=== PATIENT | male | born 1975 | race African-American/Black ===

== ENCOUNTER 2021-06-06 16:22 | Inpatient (IN) | payer BC, SELFPAY ==
[2021-06-06 17:57] LABS: Hemoglobin 12.7 g/dL (14.0-18.0); Mean Corpuscular HGB CONC 33.9 g/dL (32.0-36.0); Mean Corpuscular Hemoglobin 30.3 pg (27.0-31.0); Mean Corpuscular Volume 89.5 fL (78.0-98.0); RBC Distribution Width 17.3 % (11.5-14.5); Red Blood Cell (RBC) Count 4.17 mill/uL (4.70-6.10); White Blood Cell (WBC) Count 10.1 thou/uL (4.8-10.8)
[2021-06-06 18:12] LABS: ALT (SGPT) 70 U/L (8-55); AST (SGOT) 58 U/L (5-34); Albumin 4.3 g/dL (3.5-5.0); Alkaline Phosphatase 72 U/L (40-110); BUN (Urea Nitrogen) 46 mg/dL (8.9-20.6); Calc. Creatinine Clearance 0 mL/min (70-130); Calcium 9.8 mg/dL (7.8-10.44); Globulin 3.7 g/dL (2.4-3.5); Glucose 201 mg/dL (70-105); Sodium 132 mmol/L (136-145)
[2021-06-06 18:18] LABS: Band 5 % (5-11); Lymphocytes 15 % (21-51); MDiff Complete? YES; Mean Platelet Volume 10.1 fL (7.4-10.4); Monocytes 10 % (0-10); Neutrophil 70 % (42-75); Platelet Count 181 thou/uL (130-400); Platelet Morphology Comment Appears Adequate; Polychromasia SLIGHT = 2-3 cells (100X) (0-2/hpf); Target Cells MODERATE= 6-15 cells (100X) (0-1/hpf)
[2021-06-06 18:47] LABS: Carbon Dioxide 48 mmol/L (22-29)
[2021-06-06 18:48] LABS: Chloride Less than 65 mmol/L (98-107); Potassium 2.4 mmol/L (3.5-5.1)
[2021-06-06 18:56] LABS: CK (CPK) 185 U/L (30-200); Lipase 10 U/L (8-78)
[2021-06-06] MEDS ORDERED: Ondansetron PF 4 MG/2 ML Vial ONE (20:25)
[2021-06-06] MEDS ORDERED: Lorazepam 2 MG/ML VIAL ONE ×2 (20:25→21:07)
[2021-06-06] MEDS ORDERED: Pantoprazole 40 MG VIAL ONE (20:25)
[2021-06-06] MEDS ORDERED: Potassium Chloride 20 MEQ TAB ONE (20:25)
[2021-06-06] MEDS ORDERED: Multivitamins, Adult 10 ML, Thiamine HCl 100 MG, Folic Acid 1 MG in Dextrose 5 %-0.45 %... IV SCH (21:00)
[2021-06-06 21:47] LABS: Bacteria/HPF None Seen HPF (None Seen); Bilirubin Negative (Negative); Blood, Urine Negative (Negative); Clarity Clear (Clear); Glucose, Urine (Dipstick) 30 mg/dL (Negative); Ketone, Urine Trace mg/dL (Negative); Leukocyte Negative Leu/uL (Negative); Nitrite Negative (Negative); Protein, Urine (Dipstick) 30 mg/dL (Neg-Trace); RBC/HPF 0-3 HPF (0-3); Specific Gravity, Urine 1.018 (1.002-1.036); Squamous Epithelial 0-3 HPF (0-3); Urobilinogen Normal mg/dL (Less than 2); WBC/HPF 0-3 HPF (0-3); pH, Urine 6.5 (5.0-9.0)
[2021-06-06] MEDS ORDERED: Octreotide Acetate 1,250 MCG in Sodium Chloride 0.9% 250 ML 250 ML IVPB SCH (22:15)
[2021-06-06 22:30] LABS: #Lymphocytes 1.2 thou/uL (1.20-3.40); #Monocytes 1.5 thou/uL (0.11-0.59); #Neutrophils 9.1 thou/uL (1.40-6.50); %Basophils 0.2 % (0.0-1.0); %Eosinophils 0.1 % (0.0-10.0); %Lymphocytes 10.4 % (21.0-51.0); %Monocytes 12.9 % (0.0-10.0); %Neutrophils 76.4 % (42.0-75.0); Hemoglobin 9.9 g/dL (14.0-18.0); Mean Corpuscular HGB CONC 34.2 g/dL (32.0-36.0); Mean Corpuscular Hemoglobin 30.8 pg (27.0-31.0); Mean Platelet Volume 9.7 fL (7.4-10.4); Platelet Count 146 thou/uL (130-400); RBC Distribution Width 17.1 % (11.5-14.5); White Blood Cell (WBC) Count 11.9 thou/uL (4.8-10.8)
[2021-06-06] MEDS ORDERED: Octreotide Acetate 50 MCG/ML AMP SLOW IVP SCH (22:30)
[2021-06-06 22:44] LABS: Lactic Acid 3.7 mmol/L (0.5-2.2)
[2021-06-06] MEDS ORDERED: Acetaminophen 650 MG Suppository PR PRN (22:47)
[2021-06-06] MEDS ORDERED: Ondansetron ODT 4 MG TAB PO PRN (22:47)
[2021-06-06] MEDS ORDERED: Ondansetron PF 4 MG/2 ML Vial IVP PRN (22:47)
[2021-06-06 22:57] LABS: Anion Gap 23 mmol/L (10-20); Carbon Dioxide 40 mmol/L (22-29); Sodium 129 mmol/L (136-145)
[2021-06-06] MEDS ORDERED: cefTRIAXone\\ROCEPHIN 1 GM in Sodium Chloride 0.9% 100 ML IVPB SCH (23:00)
[2021-06-06] MEDS ORDERED: Sodium Chloride 0.9% 1,000 ML IV SCH (23:00)
[2021-06-06 23:05] LABS: BUN (Urea Nitrogen) 55 mg/dL (8.9-20.6); Calc. Creatinine Clearance 0 mL/min (70-130); Calcium 8.1 mg/dL (7.8-10.44); Chloride 68 mmol/L (98-107); Glucose 150 mg/dL (70-105); Potassium 2.4 mmol/L (3.5-5.1)
[2021-06-06 23:37] LABS: Magnesium 2.2 mg/dL (1.6-2.6)
[2021-06-06] MEDS ORDERED: Sodium Chloride 0.9% 500 ML IV SCH (23:45)
[2021-06-07 00:39] LABS: Amphetamine Not Detected (NotDetected); Barbiturates Screen Not Detected (NotDetected); Benzodiazepine Screen Not Detected (NotDetected); Cocaine Metabolite Screen Not Detected (NotDetected); Methadone Not Detected (NotDetected); Methamphetamine Not Detected (NotDetected); Opiate Screen Not Detected (NotDetected); Oxycodone Screen Not Detected (NotDetected); Phencyclidine (PCP) Not Detected (NotDetected); THC/Cannabinoid Screen Detected (NotDetected); Tricyclic Screen Not Detected (NotDetected)
[2021-06-07 00:42] VITALS: BMI 20.2
[2021-06-07] MEDS: Potassium Chloride 20 MEQ in Premix Bag 1 BAG IVPB SCH ×7 (01:13→18:31)
[2021-06-07 02:12] LABS: Hemoglobin 9.2 g/dL (14.0-18.0)
[2021-06-07] MEDS: Pantoprazole 80 MG in Sodium Chloride 0.9% 100 ML IVPB SCH (02:14)
[2021-06-07] MEDS ORDERED: Electrolyte Replacement Protocol 1 EACH FS SCH (02:30)
[2021-06-07 04:21] LABS: Hemoglobin 8.8 g/dL (14.0-18.0); Mean Corpuscular Hemoglobin 29.4 pg (27.0-31.0); Mean Corpuscular Volume 89.3 fL (78.0-98.0); Mean Platelet Volume 9.5 fL (7.4-10.4); Platelet Count 154 thou/uL (130-400); Red Blood Cell (RBC) Count 2.98 mill/uL (4.70-6.10); White Blood Cell (WBC) Count 11.2 thou/uL (4.8-10.8)
[2021-06-07 04:30] LABS: BUN (Urea Nitrogen) 54 mg/dL (8.9-20.6); Calc. Creatinine Clearance 38 mL/min (70-130); Glucose 154 mg/dL (70-105)
[2021-06-07 04:35] LABS: ALT (SGPT) 44 U/L (8-55); AST (SGOT) 38 U/L (5-34); Albumin 3.2 g/dL (3.5-5.0); Alkaline Phosphatase 49 U/L (40-110); Bilirubin, Direct 0.3 mg/dL (0.1-0.3); Bilirubin, Total 0.7 mg/dL (0.2-1.2); Protein, Total 5.9 g/dL (6.0-8.3)
[2021-06-07 04:39] LABS: Anion Gap 22 mmol/L (10-20); Carbon Dioxide 38 mmol/L (22-29); Sodium 130 mmol/L (136-145)
[2021-06-07 04:45] LABS: Chloride 73 mmol/L (98-107); Potassium 2.9 mmol/L (3.5-5.1)
[2021-06-07 06:26] LABS: Band 7 % (5-11); Lymphocytes 24 % (21-51); MDiff Complete? YES; Monocytes 14 % (0-10); Neutrophil 55 % (42-75)
[2021-06-07] MEDS ORDERED: Potassium Chloride 40 MEQ in Sodium Chloride 0.9% 250 ML 250 ML IVPB SCH (06:45)
[2021-06-07 07:00] LABS: SARS-CoV-2 NAA Rapid Test Not Detected (NotDetected)
[2021-06-07 08:45] LABS: Hemoglobin 8.5 g/dL (14.0-18.0)
[2021-06-07] MEDS ORDERED: PROPOFOL 200 MG/20 ML VIAL ONE (11:54)
[2021-06-07 13:26] LABS: Hemoglobin 8.7 g/dL (14.0-18.0)
[2021-06-07 13:47] LABS: BUN (Urea Nitrogen) 45 mg/dL (8.9-20.6); Calc. Creatinine Clearance 40 mL/min (70-130); Calcium 8.5 mg/dL (7.8-10.44); Glucose 131 mg/dL (70-105)
[2021-06-07 14:05] LABS: Sodium 131 mmol/L (136-145)
[2021-06-07 14:48] LABS: Anion Gap 15 mmol/L (10-20)
[2021-06-07 14:55] LABS: Carbon Dioxide 41 mmol/L (22-29)
[2021-06-07 14:56] LABS: Potassium 2.8 mmol/L (3.5-5.1)
[2021-06-07 14:59] LABS: Chloride 80 mmol/L (98-107)
[2021-06-07] MEDS: Sodium Chloride 0.9% 1,000 ML IV SCH ×4 (15:34→23:56)
[2021-06-07 16:02] LABS: Hemoglobin 8.2 g/dL (14.0-18.0)
[2021-06-07 21:32] LABS: #Basophils 0.1 thou/uL (0.0-0.2); #Eosinphils 0.1 thou/uL (0.0-0.7); #Lymphocytes 1.8 thou/uL (1.20-3.40); #Monocytes 1.6 thou/uL (0.11-0.59); #Neutrophils 7.1 thou/uL (1.40-6.50); %Basophils 0.9 % (0.0-1.0); %Eosinophils 0.7 % (0.0-10.0); %Lymphocytes 17.3 % (21.0-51.0); %Monocytes 14.6 % (0.0-10.0); %Neutrophils 66.4 % (42.0-75.0); Hemoglobin 7.9 g/dL (14.0-18.0); Mean Corpuscular HGB CONC 33.8 g/dL (32.0-36.0); Mean Corpuscular Hemoglobin 30.9 pg (27.0-31.0); Mean Corpuscular Volume 91.3 fL (78.0-98.0); Mean Platelet Volume 9.4 fL (7.4-10.4); Platelet Count 151 thou/uL (130-400); RBC Distribution Width 16.6 % (11.5-14.5); Red Blood Cell (RBC) Count 2.55 mill/uL (4.70-6.10); White Blood Cell (WBC) Count 10.6 thou/uL (4.8-10.8)
[2021-06-07 21:54] LABS: Anion Gap 11 mmol/L (10-20); BUN (Urea Nitrogen) 31 mg/dL (8.9-20.6); Calc. Creatinine Clearance 49 mL/min (70-130); Calcium 7.9 mg/dL (7.8-10.44); Carbon Dioxide 36 mmol/L (22-29); Chloride 90 mmol/L (98-107); Glucose 103 mg/dL (70-105); Potassium 3.4 mmol/L (3.5-5.1); Sodium 134 mmol/L (136-145)
[2021-06-08] MEDS: Pantoprazole 80 MG in Sodium Chloride 0.9% 100 ML IVPB SCH ×2 (03:01→22:43)
[2021-06-08 03:48] LABS: #Basophils 0.1 thou/uL (0.0-0.2); #Eosinphils 0.2 thou/uL (0.0-0.7); #Lymphocytes 2.4 thou/uL (1.20-3.40); #Monocytes 1.4 thou/uL (0.11-0.59); #Neutrophils 5.7 thou/uL (1.40-6.50); %Eosinophils 1.6 % (0.0-10.0); %Lymphocytes 24.3 % (21.0-51.0); %Monocytes 14.3 % (0.0-10.0); %Neutrophils 58.7 % (42.0-75.0); Hemoglobin 7.2 g/dL (14.0-18.0); Mean Corpuscular HGB CONC 34.8 g/dL (32.0-36.0); Mean Corpuscular Hemoglobin 31.8 pg (27.0-31.0); Mean Corpuscular Volume 91.4 fL (78.0-98.0); Platelet Count 156 thou/uL (130-400); RBC Distribution Width 16.6 % (11.5-14.5); Red Blood Cell (RBC) Count 2.27 mill/uL (4.70-6.10); White Blood Cell (WBC) Count 9.7 thou/uL (4.8-10.8)
[2021-06-08] MEDS: Sodium Chloride 0.9% 1,000 ML IV SCH ×5 (04:03→22:43)
[2021-06-08 04:10] LABS: Phosphorus 2.6 mg/dL (2.3-4.7)
[2021-06-08 04:14] LABS: Anion Gap 5 mmol/L (10-20); BUN (Urea Nitrogen) 29 mg/dL (8.9-20.6); Calc. Creatinine Clearance 53 mL/min (70-130); Calcium 7.8 mg/dL (7.8-10.44); Carbon Dioxide 37 mmol/L (22-29); Chloride 94 mmol/L (98-107); Glucose 109 mg/dL (70-105); Magnesium 2.4 mg/dL (1.6-2.6); Sodium 133 mmol/L (136-145)
[2021-06-08] MEDS ORDERED: Potassium Bicarbonate/Cit Ac 20 MEQ TAB PO SCH (06:45)
[2021-06-08] MEDS: Acetaminophen 325 MG TAB PO PRN ×2 (07:31→19:30)
[2021-06-08] MEDS ORDERED: Potassium Phosphate 30 MMOL in Sodium Chloride 0.9% 250 ML 250 ML IVPB SCH (08:30)
[2021-06-08 12:38] LABS: Hemoglobin 7.3 g/dL (14.0-18.0); Platelet Count 173 thou/uL (130-400)
[2021-06-08 13:04] LABS: Iron 20 ug/dL (65-175); Iron Binding Capacity, Total 329 mcg/dL (261-462)
[2021-06-08] MEDS ORDERED: Iron Sucrose Complex 400 MG in Sodium Chloride 0.9% 200 ML IVPB SCH (13:15)
[2021-06-08] MEDS: Iron, Sodium Ferric Gluconate 250 MG in Sodium Chloride 0.9% 250 ML 250 ML IVPB SCH (16:18)
[2021-06-09] MEDS: Iron, Sodium Ferric Gluconate 250 MG in Sodium Chloride 0.9% 250 ML 250 ML IVPB SCH (02:43)
[2021-06-09 04:22] LABS: #Eosinphils 0.3 thou/uL (0.0-0.7); #Lymphocytes 2.6 thou/uL (1.20-3.40); #Monocytes 1.1 thou/uL (0.11-0.59); #Neutrophils 5.3 thou/uL (1.40-6.50); %Basophils 0.5 % (0.0-1.0); %Eosinophils 2.8 % (0.0-10.0); %Lymphocytes 28.5 % (21.0-51.0); %Monocytes 11.4 % (0.0-10.0); %Neutrophils 56.8 % (42.0-75.0); Hemoglobin 7.2 g/dL (14.0-18.0); Mean Corpuscular HGB CONC 33.1 g/dL (32.0-36.0); Mean Corpuscular Hemoglobin 30.6 pg (27.0-31.0); Mean Corpuscular Volume 92.6 fL (78.0-98.0); Mean Platelet Volume 8.7 fL (7.4-10.4); Platelet Count 184 thou/uL (130-400); RBC Distribution Width 16.2 % (11.5-14.5); Red Blood Cell (RBC) Count 2.36 mill/uL (4.70-6.10); White Blood Cell (WBC) Count 9.3 thou/uL (4.8-10.8)
[2021-06-09 04:38] LABS: Anion Gap 9 mmol/L (10-20); BUN (Urea Nitrogen) 15 mg/dL (8.9-20.6); Calc. Creatinine Clearance 68 mL/min (70-130); Calcium 7.8 mg/dL (7.8-10.44); Carbon Dioxide 28 mmol/L (22-29); Chloride 103 mmol/L (98-107); Glucose 92 mg/dL (70-105); Sodium 137 mmol/L (136-145)
[2021-06-09] MEDS ORDERED: Potassium Bicarbonate/Cit Ac 20 MEQ TAB PO SCH (07:00)
[2021-06-09] MEDS: Potassium Chloride 20 MEQ TAB PO SCH ×3 (09:26→14:55)
[2021-06-09 14:54] VITALS: BP 151/95; TEMP 98.9
== END 2021-06-09 15:55 | disposition home or self-care (01) | DRG 377 ==
LOC: ERS 16:22 → 2NO 22:05
PROVIDERS: ADMIT Student in an Organized Health Care Education/Training Program; ATTEND Internal Medicine
PROC: 0W3P8ZZ Control Bleeding in Gastrointestinal Tract, Via Natural or Artificial Opening Endoscopic (ICD-10-PCS; principal; 2021-06-07)
DX: K26.4 Chronic or unspecified duodenal ulcer with hemorrhage (principal); R57.8 Other shock; E87.3 Alkalosis; N17.9 Acute kidney failure, unspecified; F10.239 Alcohol dependence with withdrawal, unspecified; E87.2 Acidosis; D62 Acute posthemorrhagic anemia; E87.1 Hypo-osmolality and hyponatremia; G93.49 Other encephalopathy; Z20.822 Contact with and (suspected) exposure to COVID-19; E78.5 Hyperlipidemia, unspecified; I10 Essential (primary) hypertension; K76.0 Fatty (change of) liver, not elsewhere classified; F17.210 Nicotine dependence, cigarettes, uncomplicated; E87.6 Hypokalemia; E87.8 Other disorders of electrolyte and fluid balance, not elsewhere classified; R74.01 Elevation of levels of liver transaminase levels; E86.0 Dehydration; K21.00 Gastro-esophageal reflux disease with esophagitis, without bleeding; E86.9 Volume depletion, unspecified; Z88.8 Allergy status to other drugs, medicaments and biological substances
CPT/HCPCS: 36415; 71045; 76705; 80048; 80053; 80076; 80306; 80307; 81003; 81015; 82040; 82140; 82550; 82728; 83540; 83550; 83605; 83690; 83735; 84100; 85025; 86850; 86900; 86901; 93005; 96365; 96366; 96375; 96376; C9113; J0696; J2060; J2354; J2405; J2704; J2916; J3411; J3480; J3490; J7042; J7050; U0002

== ENCOUNTER 2023-01-14 16:37 | Inpatient (IN) | payer OTHER, SELFPAY ==
[2023-01-14] MEDS ORDERED: NIFEdipine 10 MG CAP PO SCH (17:30)
[2023-01-14] MEDS ORDERED: Acetaminophen 325 MG TAB PO PRN (18:16)
[2023-01-14] MEDS ORDERED: Ondansetron PF 4 MG/2 ML Vial IVP PRN (18:16)
[2023-01-14] MEDS ORDERED: Labetalol HCl 100 MG/20 ML VIAL SLOW IVP PRN (18:16)
[2023-01-14] MEDS ORDERED: Ondansetron ODT 4 MG TAB PO PRN (18:16)
[2023-01-14] MEDS ORDERED: HYDROcodone/Acetaminophen 5/325 mg Tablet PO PRN (18:16)
[2023-01-14] MEDS ORDERED: hydrALAZINE 20 MG/ML VIAL SLOW IVP PRN (18:16)
[2023-01-14] MEDS ORDERED: niCARdipine 25 MG in Sodium Chloride 0.9% 250 ML 250 ML IVPB SCH (18:30)
[2023-01-14] MEDS ORDERED: niCARdipine 25 MG/10 ML SDV ONE (18:45)
[2023-01-14] MEDS ORDERED: Lorazepam 2 MG/ML VIAL IM PRN (19:49)
[2023-01-14] MEDS ORDERED: Lorazepam 1 MG TAB PO PRN (19:49)
[2023-01-14] MEDS ORDERED: Nicotine 14 MG PATCH TD SCH (20:00)
[2023-01-14] MEDS ORDERED: Thiamine HCl 200 MG/2 ML VIAL SLOW IVP SCH (20:00)
[2023-01-14] MEDS ORDERED: Electrolyte Replacement Protocol 1 EACH FS SCH (20:00)
[2023-01-14 20:58] VITALS: BMI 20.9
[2023-01-14] MEDS: Lorazepam 1 MG TAB PO SCH (21:16)
[2023-01-15] MEDS: Lorazepam 1 MG TAB PO SCH ×2 (02:39→09:09)
[2023-01-15 04:08] LABS: #Lymphocytes 1.4 thou/uL (1.20-3.40); #Monocytes 0.6 thou/uL (0.11-0.59); #Neutrophils 2.6 thou/uL (1.40-6.50); %Basophils 0.8 % (0.0-1.0); %Eosinophils 0.1 % (0.0-10.0); %Lymphocytes 30.3 % (21.0-51.0); %Monocytes 12.5 % (0.0-10.0); %Neutrophils 56.3 % (42.0-75.0); Hemoglobin 12.6 g/dL (14.0-18.0); Mean Corpuscular HGB CONC 32.8 g/dL (32.0-36.0); Mean Corpuscular Hemoglobin 29.4 pg (27.0-31.0); Mean Corpuscular Volume 89.7 fl (78.0-98.0); Mean Platelet Volume 9.7 fL (7.4-10.4); Platelet Count 242 10x3/uL (130-400); RBC Distribution Width 18.5 % (11.5-14.5); Red Blood Cell (RBC) Count 4.29 mill/uL (4.70-6.10); White Blood Cell (WBC) Count 4.6 10x3/uL (4.8-10.8)
[2023-01-15 04:26] LABS: Phosphorus 4.5 mg/dL (2.3-4.7)
[2023-01-15 04:29] LABS: Anion Gap 16 mmol/L (10-20); BUN (Urea Nitrogen) 9 mg/dL (8.9-20.6); Calc. Creatinine Clearance 108 mL/min (70-130); Calcium 9.7 mg/dL (7.8-10.44); Carbon Dioxide 24 mmol/L (22-29); Chloride 100 mmol/L (98-107); Estimated GFR 115; Glucose 91 mg/dL (70-105); Magnesium 2.1 mg/dL (1.6-2.6); Potassium 3.8 mmol/L (3.5-5.1); Sodium 136 mmol/L (136-145)
[2023-01-15] MEDS ORDERED: Multivit, Therapeutic 1 TAB PO SCH (09:00)
[2023-01-15] MEDS ORDERED: Amlodipine 5 MG TAB PO SCH (09:00)
[2023-01-15] MEDS ORDERED: Folic Acid 1 MG TAB PO SCH (09:00)
[2023-01-15 09:03] VITALS: BP 146/80
[2023-01-15 09:39] VITALS: TEMP 98.5
[2023-01-15 10:00] LABS: Amphetamine Not Detected (NotDetected); Barbiturates Screen Not Detected (NotDetected); Benzodiazepine Screen Detected (NotDetected); Cocaine Metabolite Screen Not Detected (NotDetected); Methadone Not Detected (NotDetected); Methamphetamine Not Detected (NotDetected); Opiate Screen Not Detected (NotDetected); Oxycodone Screen Not Detected (NotDetected); Phencyclidine (PCP) Not Detected (NotDetected); THC/Cannabinoid Screen Detected (NotDetected); Tricyclic Screen Not Detected (NotDetected)
[2023-01-15] MEDS ORDERED: Lorazepam 1 MG TAB PO PRN (19:49)
[2023-01-16] MEDS ORDERED: Losartan 25 MG TAB PO SCH (09:00)
[2023-01-16] MEDS ORDERED: Lorazepam 1 MG TAB PO PRN (19:49)
[2023-01-16] MEDS ORDERED: Lorazepam 0.5 MG TAB PO SCH (20:00)
[2023-01-17] MEDS ORDERED: Lorazepam 0.5 MG TAB PO PRN (19:49)
[2023-01-17] MEDS ORDERED: Thiamine 100 MG TAB PO SCH (20:00)
== END 2023-01-15 12:15 | disposition home or self-care (01) | DRG 305 ==
LOC: ERS 16:37 → CCU 17:15
PROVIDERS: ADMIT Internal Medicine; ATTEND Internal Medicine
DX: I16.1 Hypertensive emergency (principal); Z88.8 Allergy status to other drugs, medicaments and biological substances; Z98.890 Other specified postprocedural states
CPT/HCPCS: 36415; 80048; 80306; 83735; 84100; 85025; J1650; J3411

== ENCOUNTER 2023-04-15 18:19 | Observation (INO) | payer OTHER ==
[2023-04-15 18:43] LABS: Hemoglobin 7.2 g/dL (14.0-18.0); Mean Corpuscular HGB CONC 33.3 g/dL (32.0-36.0); Mean Corpuscular Hemoglobin 31.3 pg (27.0-31.0); Mean Corpuscular Volume 93.9 fl (78.0-98.0); Mean Platelet Volume 9.3 fL (7.4-10.4); Platelet Count 357 10x3/uL (130-400); RBC Distribution Width 17.4 % (11.5-14.5); White Blood Cell (WBC) Count 11.3 10x3/uL (4.8-10.8)
[2023-04-15 18:44] LABS: Delete Auto Diff?? YES; Manual Diff?? YES
[2023-04-15 19:06] LABS: ALT (SGPT) 60 U/L (8-55); AST (SGOT) 39 U/L (5-34); Albumin 3.6 g/dL (3.5-5.0); Alkaline Phosphatase 57 U/L (40-110); Anion Gap 11 mmol/L (10-20); Anisocytosis SLIGHT = 6-15 cells HPF (0-5); BUN (Urea Nitrogen) 6 mg/dL (8.9-20.6); Band 2 % (5-11); Bilirubin, Total 0.2 mg/dL (0.2-1.2); Calc. Creatinine Clearance 0 mL/min (70-130); Calcium 9.1 mg/dL (7.8-10.44); Carbon Dioxide 23 mmol/L (22-29); CellaVision Operator ID LAB.MJL; Chloride 104 mmol/L (98-107); Eosinophils 2 % (0-10); Estimated GFR 112; Globulin 2.6 g/dL (2.4-3.5); Glucose 116 mg/dL (70-105); Large Platelets 6.1 % (0-5); Lymphocytes 37 % (21-51); Monocytes 7 % (0-10); Neutrophil 47 % (42-75); Platelet Adequacy Comment Platelets Normal; Polychromasia SLIGHT = 2-3 cells HPF (0-2); Potassium 3.5 mmol/L (3.5-5.1); Protein, Total 6.2 g/dL (6.0-8.3); Sodium 134 mmol/L (136-145); Target Cells SLIGHT = 2-5 cells HPF (0-1); Total Cell Count 99
[2023-04-15 19:30] LABS: INR-International Normal Ratio 0.9; PTT 25.9 sec (22.9-36.1); Prothrombin Time 12.9 sec (12.0-14.7)
[2023-04-15] MEDS ORDERED: Pantoprazole 80 MG, Admixture Fee 1 EACH in Sodium Chloride 0.9% 100 ML IVPB SCH (20:45)
[2023-04-15] MEDS ORDERED: cefTRIAXone (ROCEPHIN) 2 GM VIAL ONE (20:51)
[2023-04-15] MEDS ORDERED: Ondansetron PF 4 MG/2 ML Vial IVP PRN (20:57)
[2023-04-15] MEDS ORDERED: Acetaminophen 500 MG TAB PO PRN (21:00)
[2023-04-15] MEDS ORDERED: LORazepam 2 MG/ML SYR.(CARPUJECT) ONE (21:15)
[2023-04-15] MEDS ORDERED: Lorazepam 2 MG/ML VIAL IM PRN (21:15)
[2023-04-15] MEDS ORDERED: Electrolyte Replacement Protocol 1 EACH FS SCH (21:15)
[2023-04-15] MEDS ORDERED: Lorazepam 1 MG TAB PO PRN (21:15)
[2023-04-15 23:44] VITALS: BMI 21.7
[2023-04-16] MEDS: Potassium Chloride 20 MEQ in Premix Bag 1 BAG IVPB SCH ×2 (00:45→02:34)
[2023-04-16] MEDS: Thiamine HCl 200 MG/2 ML VIAL SLOW IVP SCH ×2 (00:53→20:47)
[2023-04-16 02:03] LABS: Hemoglobin 7.6 g/dL (14.0-18.0)
[2023-04-16 02:04] LABS: #Basophils 0.1 thou/uL (0.0-0.2); #Eosinphils 0.2 thou/uL (0.0-0.7); #Monocytes 1.4 thou/uL (0.11-0.59); #Neutrophils 4.4 thou/uL (1.40-6.50); %Basophils 0.8 % (0.0-1.0); %Eosinophils 2.1 % (0.0-10.0); %Lymphocytes 35.5 % (21.0-51.0); %Monocytes 14.3 % (0.0-10.0); %Neutrophils 46.6 % (42.0-75.0); Hemoglobin 7.4 g/dL (14.0-18.0); Mean Corpuscular HGB CONC 32.9 g/dL (32.0-36.0); Mean Corpuscular Hemoglobin 29.7 pg (27.0-31.0); Mean Platelet Volume 9.4 fL (7.4-10.4); Platelet Count 347 10x3/uL (130-400); RBC Distribution Width 17.5 % (11.5-14.5); Red Blood Cell (RBC) Count 2.49 mill/uL (4.70-6.10); White Blood Cell (WBC) Count 9.4 10x3/uL (4.8-10.8)
[2023-04-16 02:19] LABS: Mean Corpuscular Volume 90.4 fl (78.0-98.0)
[2023-04-16 03:06] LABS: ALT (SGPT) 54 U/L (8-55); AST (SGOT) 41 U/L (5-34); Albumin 3.2 g/dL (3.5-5.0); Alkaline Phosphatase 50 U/L (40-110); Anion Gap 12 mmol/L (10-20); BUN (Urea Nitrogen) 6 mg/dL (8.9-20.6); Bilirubin, Total 0.4 mg/dL (0.2-1.2); Calc. Creatinine Clearance 119 mL/min (70-130); Calcium 8.7 mg/dL (7.8-10.44); Carbon Dioxide 22 mmol/L (22-29); Chloride 108 mmol/L (98-107); Estimated GFR 117; Globulin 2.2 g/dL (2.4-3.5); Glucose 107 mg/dL (70-105); Potassium 4.2 mmol/L (3.5-5.1); Protein, Total 5.4 g/dL (6.0-8.3); Sodium 138 mmol/L (136-145)
[2023-04-16] MEDS ORDERED: Magnesium 2 GM/50 ML(in water) 2 GM in Premix Bag 1 BAG IVPB SCH (08:00)
[2023-04-16] MEDS: Multivit, Therapeutic 1 TAB PO SCH (08:52)
[2023-04-16] MEDS: Folic Acid 1 MG TAB PO SCH (08:52)
[2023-04-16] MEDS: Losartan 25 MG TAB PO SCH (08:52)
[2023-04-16] MEDS ORDERED: PROPOFOL 200 MG/20 ML VIAL ONE (10:32)
[2023-04-16] MEDS ORDERED: Lidocaine 1% PF 5 ML VIAL ONE (10:32)
[2023-04-16] MEDS ORDERED: Iron, Sodium Ferric Gluconate 250 MG in Sodium Chloride 0.9% 250 ML 250 ML IVPB SCH (12:00)
[2023-04-16 13:19] LABS: Hemoglobin 8.5 g/dL (14.0-18.0)
[2023-04-16] MEDS ORDERED: Lorazepam 1 MG TAB PO PRN (21:15)
[2023-04-16 21:29] LABS: Hemoglobin 8.6 g/dL (14.0-18.0)
[2023-04-17 05:34] LABS: #Basophils 0.1 thou/uL (0.0-0.2); #Eosinphils 0.3 thou/uL (0.0-0.7); #Monocytes 1.7 thou/uL (0.11-0.59); #Neutrophils 5.5 thou/uL (1.40-6.50); %Basophils 1.2 % (0.0-1.0); %Eosinophils 2.4 % (0.0-10.0); %Lymphocytes 25.1 % (21.0-51.0); %Monocytes 16.9 % (0.0-10.0); %Neutrophils 53.6 % (42.0-75.0); Hemoglobin 9.2 g/dL (14.0-18.0); Mean Corpuscular HGB CONC 32.7 g/dL (32.0-36.0); Mean Corpuscular Hemoglobin 30.4 pg (27.0-31.0); Mean Corpuscular Volume 92.7 fl (78.0-98.0); Mean Platelet Volume 9.4 fL (7.4-10.4); Platelet Count 495 10x3/uL (130-400); RBC Distribution Width 18.6 % (11.5-14.5); Red Blood Cell (RBC) Count 3.03 mill/uL (4.70-6.10); White Blood Cell (WBC) Count 10.2 10x3/uL (4.8-10.8)
[2023-04-17 06:08] LABS: ALT (SGPT) 49 U/L (8-55); AST (SGOT) 28 U/L (5-34); Albumin 3.4 g/dL (3.5-5.0); Alkaline Phosphatase 57 U/L (40-110); Anion Gap 13 mmol/L (10-20); BUN (Urea Nitrogen) 6 mg/dL (8.9-20.6); Bilirubin, Total 0.2 mg/dL (0.2-1.2); Calc. Creatinine Clearance 106 mL/min (70-130); Calcium 9.3 mg/dL (7.8-10.44); Carbon Dioxide 22 mmol/L (22-29); Chloride 108 mmol/L (98-107); Estimated GFR 113; Globulin 2.7 g/dL (2.4-3.5); Glucose 125 mg/dL (70-105); Magnesium 2.4 mg/dL (1.6-2.6); Potassium 3.9 mmol/L (3.5-5.1); Protein, Total 6.1 g/dL (6.0-8.3); Sodium 139 mmol/L (136-145)
[2023-04-17] MEDS ORDERED: Iron Polysaccharides Complex 150 MG CAP PO SCH (08:00)
[2023-04-17] MEDS: Losartan 25 MG TAB PO SCH (09:32)
[2023-04-17] MEDS: Multivit, Therapeutic 1 TAB PO SCH (09:32)
[2023-04-17 12:17] VITALS: BP 135/84; TEMP 98.3
[2023-04-17] MEDS ORDERED: Lorazepam 1 MG TAB PO PRN (21:15)
[2023-04-18] MEDS ORDERED: Thiamine 100 MG TAB PO SCH (21:00)
[2023-04-18] MEDS ORDERED: Lorazepam 0.5 MG TAB PO PRN (21:15)
== END 2023-04-17 12:00 | disposition home or self-care (01) ==
LOC: ERS 18:19 → 2NO 20:57
PROVIDERS: ADMIT Internal Medicine; ATTEND Internal Medicine
PROC: 0DD68ZX Extraction of Stomach, Via Natural or Artificial Opening Endoscopic, Diagnostic (ICD-10-PCS; principal; 2023-04-16)
DX: K92.2 Gastrointestinal hemorrhage, unspecified (principal); K29.41 Chronic atrophic gastritis with bleeding; B96.81 Helicobacter pylori [H. pylori] as the cause of diseases classified elsewhere; K92.1 Melena; D62 Acute posthemorrhagic anemia; F17.210 Nicotine dependence, cigarettes, uncomplicated; F10.10 Alcohol abuse, uncomplicated; R74.8 Abnormal levels of other serum enzymes; I10 Essential (primary) hypertension; Z79.899 Other long term (current) drug therapy; Z88.8 Allergy status to other drugs, medicaments and biological substances
CPT/HCPCS: 36415; 36430; 80053; 83735; 84484; 85025; 85610; 85730; 86850; 86900; 86901; 88305; 93005; 96365; 96367; 96375; 96376; C9113; G0378; J0696; J2060; J2704; J2916; J3411; J3475; J3480; J3490; J7050; P9016

== ENCOUNTER → 2024-09-01 | Emergency (ER) | payer OTHER ==
[2024-09-06 15:36] LABS: ALT (SGPT) 16 U/L (8-55); AST (SGOT) 31 U/L (5-34); Albumin 3.9 g/dL (3.5-5.0); Alkaline Phosphatase 62 U/L (40-110); Anion Gap 15 mmol/L (10-20); BUN (Urea Nitrogen) 5 mg/dL (8.9-20.6); Bilirubin, Total 0.9 mg/dL (0.2-1.2); Calc. Creatinine Clearance 0 mL/min (70-130); Calcium 8.8 mg/dL (7.8-10.44); Carbon Dioxide 20 mmol/L (22-29); Chloride 106 mmol/L (98-107); Estimated GFR 115; Globulin 3.2 g/dL (2.4-3.5); Glucose 84 mg/dL (70-105); Potassium 3.7 mmol/L (3.5-5.1); Protein, Total 7.1 g/dL (6.0-8.3); Sodium 137 mmol/L (136-145)
[2024-09-06 15:38] LABS: Bacteria/HPF None Seen HPF (None Seen); Bilirubin Negative (Negative); Blood, Urine Negative (Negative); Clarity Clear (Clear); Glucose, Urine (Dipstick) Normal (Negative); Ketone, Urine Negative (Negative); Leukocyte Negative Leu/uL (Negative); Nitrite Negative (Negative); Protein, Urine (Dipstick) Negative (Neg-Trace); RBC/HPF 0-3 HPF (0-3); Specific Gravity, Urine 1.003 (1.002-1.036); Squamous Epithelial None Seen HPF (0-3); Urobilinogen Normal mg/dL (Less than 2); WBC/HPF None Seen HPF (0-3)
[2024-09-07 08:39] LABS: %Basophils 1.2 % (0.0-1.0); %Eosinophils 2.4 % (0.0-10.0); %Monocytes 9.4 % (0.0-10.0); %Neutrophils 44.6 % (42.0-75.0); Hematocrit 39.5 % (42.0-52.0); Hemoglobin 13.6 g/dL (14.0-18.0); Mean Corpuscular HGB CONC 34.4 g/dL (32.0-36.0); Mean Corpuscular Hemoglobin 30.8 pg (27.0-31.0); Mean Corpuscular Volume 89.6 fL (78.0-98.0); Mean Platelet Volume 9.4 fL (7.4-10.4); Platelet Count 207 10x3/uL (130-400); RBC Distribution Width 18.1 % (11.5-14.5); Red Blood Cell (RBC) Count 4.41 mill/uL (4.70-6.10); White Blood Cell (WBC) Count 5.09 10x3/uL (4.8-10.8)
[2024-09-07 08:40] LABS: #Basophils 0.06 10x3/uL (0.0-0.2); #Eosinophils 0.12 10x3/uL (0.0-0.7); #Monocytes 0.48 10x3/uL (0.11-0.59); #Neutrophils 2.27 10x3/uL (1.40-6.50)
[2024-09-07 11:19] LABS: Alcohol 150.3 mg/dL (Less than 10)
== END ==
LOC: ERS 23:07
DX: R53.1 Weakness (principal); F10.129 Alcohol abuse with intoxication, unspecified; I10 Essential (primary) hypertension; F17.210 Nicotine dependence, cigarettes, uncomplicated; Y90.6 Blood alcohol level of 120-199 mg/100 ml; Z55.6 Problems related to health literacy; Z79.899 Other long term (current) drug therapy
CPT/HCPCS: 70450; 80053; 81001; 85025